=== PATIENT | female | born 1980 | race Two or more races ===

== ENCOUNTER 2017-04-09 11:36 | Emergency (ER) | payer OTHER ==
[~2017-04-09] VITALS: Ht 152.4 cm; Wt 120.7 kg
--- NOTE | 2017-04-09 11:42 | NUR ---
LPT TO ED EFT SIDE FACIAL PARALYSIS, LEFT EYELID SWELLING SINCE AM. SEND BY MD CRESPO. NO WEAKNESS, NO SLURRED SPEECH, NO DOUBLE VISION. VSS
[2017-04-09] MEDS ORDERED: CEPHALEXIN MONOHYDRATE 250 MG CAPSULE PO ONE (13:22)
[2017-04-09] MEDS ORDERED: FAMOTIDINE (20 MG) 20 MG TABLET ONE (13:23)
[2017-04-09] MEDS ORDERED: diphenhydrAMINE HCL 25 MG CAPSULE ONE (13:23)
[2017-04-09] MEDS ORDERED: diphenhydrAMINE HCL 50 MG CAPSULE ONE (13:24)
[2017-04-09] MEDS ORDERED: FAMOTIDINE (20 MG) 20 MG TABLET PO ONE (13:30)
[2017-04-09] MEDS ORDERED: CEPHALEXIN MONOHYDRATE 500 MG CAPSULE PO ONE (13:30)
[2017-04-09] MEDS ORDERED: diphenhydrAMINE HCL 50 MG CAPSULE PO ONE (13:30)
[2017-04-09 13:51] VITALS: BP 130/80
--- NOTE | 2017-04-09 13:51 | NUR ---
Patient discharged to home in stable condition. Written and verbal after care instructions given. Patient verbalizes understanding of instruction.
== END 2017-04-09 13:52 | disposition home or self-care (01) ==
LOC: ER 11:40
DX: T78.3XXA Angioneurotic edema, initial encounter (principal); H00.039 Abscess of eyelid unspecified eye, unspecified eyelid; H00.034 Abscess of left upper eyelid; G51.0 Bell's palsy; Z86.718 Personal history of other venous thrombosis and embolism; Y92.89 Other specified places as the place of occurrence of the external cause
CPT/HCPCS: 99284; A4606; Q0163 ×2; Z7610

== ENCOUNTER 2017-09-06 19:24 | Emergency (ER) | payer OTHER ==
[~2017-09-06] VITALS: Ht 152.4 cm; Wt 113.4 kg
[2017-09-06 19:24] VITALS: BP 132/75
== END 2017-09-06 20:15 | disposition home or self-care (01) ==
LOC: ER 19:24
DX: F41.9 Anxiety disorder, unspecified (principal); E66.01 Morbid (severe) obesity due to excess calories; R42 Dizziness and giddiness
CPT/HCPCS: 99284; A4606; Z7610